=== PATIENT | female | born 1985 | race Caucasian/White ===

== ENCOUNTER 2023-12-02 12:28 | Emergency (ER) | payer MEDICAID ==
[~2023-12-02] VITALS: Ht 167.6 cm; Wt 65.8 kg
[2023-12-02 12:47] VITALS: O2SAT 99
[2023-12-03] MEDS ORDERED: HYDR-4209 PO (14:34)
[2023-12-03] MEDS ORDERED: ONDA4TAB5 PO (14:34)
== END 2023-12-02 15:00 | disposition left against medical advice (07) ==
LOC: ER 12:28
DX: R10.9 Unspecified abdominal pain (principal); Z53.21 Procedure and treatment not carried out due to patient leaving prior to being seen by health care provider
CPT/HCPCS: A4606; A4663